=== PATIENT | female | born 1995 | race American Indian/Alaskan Native ===

== ENCOUNTER 2021-10-31 10:41 | Emergency (ER) | payer MEDICAID ==
[2021-10-31 11:14] VITALS: BP 114/86
--- NOTE | 2021-10-31 13:51 | Emergency Department Report ---
ED ENT HPI - General Chief complaint: Upper Respiratory Infection Stated complaint: CHEST PAIN Time Seen by Provider: 10/31/21 13:47 Source: patient, EMS Mode of arrival: Wheelchair Limitations: No Limitations - History of Present Illness Initial comments: 26-year-old black female with no past medical history presents to the emergency department for evaluation of 2-day history of persistent cough and now states that this morning she started to have pain in her chest only when she coughs. She states that her son was diagnosed with the flu a few days ago and then she started to have same symptoms. She denies fever, shortness of breath, nausea, vomiting, and dizziness. States that her cough has been productive for yellowish sputum. She states that she has taken ibuprofen without improvement. MD complaint: other (Cough and chest pain) -: Gradual, days(s) (2 to 3 days) Severity: moderate Severity scale (0 -10): 7 Quality: burning Consistency: intermittent Worsens with: other (Cough) Associated Symptoms: cough, pain with swallowing. denies: fever, gum swelling, toothache, sore throat, tinnitus, hearing loss, discharge from ear, rhinorrhea - Related Data Previous Rx's Medication Instructions Recorded Last Taken Type Brompheniramine/Pseudoephed/Dm 10 ml PO TID PRN #120 ml 10/31/21 Unknown Rx [Bromfed Dm Cough Syrup] methylPREDNISolone [Medrol 4MG 4 mg PO DAILY #1 pack 10/31/21 Unknown Rx DOSEPAK (21 tabs)] ED Dental HPI - General Chief complaint: Upper Respiratory Infection Stated complaint: CHEST PAIN Time Seen by Provider: 10/31/21 13:47 Source: patient, EMS Mode of arrival: Wheelchair Limitations: No Limitations - Related Data Previous Rx's Medication Instructions Recorded Last Taken Type Brompheniramine/Pseudoephed/Dm 10 ml PO TID PRN #120 ml 10/31/21 Unknown Rx [Bromfed Dm Cough Syrup] methylPREDNISolone [Medrol 4MG 4 mg PO DAILY #1 pack 10/31/21 Unknown Rx DOSEPAK (21 tabs)] ED Review of Systems ROS: Stated complaint: CHEST PAIN Other details as noted in HPI Comment: All other systems reviewed and negative Constitutional: denies: chills, fever Eyes: denies: vision change ENT: throat pain, congestion. denies: ear pain Respiratory: denies: orthopnea, shortness of breath, SOB with exertion, SOB at rest, wheezing Cardiovascular: chest pain. denies: palpitations, dyspnea on exertion, orthopnea, edema, syncope, paroxysmal nocturnal dyspnea Gastrointestinal: denies: abdominal pain, nausea, vomiting, diarrhea, hematemesis, melena, hematochezia Genitourinary: denies: urgency Musculoskeletal: denies: back pain Neurological: denies: headache, weakness, numbness, paresthesias, abnormal gait ED Past Medical Hx - Medications Home Medications: Home Medications Medication Instructions Recorded Confirmed Last Taken Type Brompheniramine/Pseudoephed/Dm 10 ml PO TID PRN #120 ml 10/31/21 Unknown Rx [Bromfed Dm Cough Syrup] methylPREDNISolone [Medrol 4MG 4 mg PO DAILY #1 pack 10/31/21 Unknown Rx DOSEPAK (21 tabs)] ED Physical Exam - General Limitations: No Limitations General appearance: alert, in no apparent distress - Head Head exam: Present: atraumatic, normocephalic - Eye Eye exam: Present: normal appearance. Absent: conjunctival injection - ENT ENT exam: Absent: normal exam (Bilateral nasal mucosal edema), normal orophraynx (Erythema to posterior oropharynx) - Neck Neck exam: Present: normal inspection. Absent: tenderness, lymphadenopathy - Respiratory Respiratory exam: Present: normal lung sounds bilaterally, chest wall tenderness. Absent: respiratory distress, wheezes, rales, rhonchi, stridor - Cardiovascular Cardiovascular Exam: Present: tachycardia, normal heart sounds - GI/Abdominal GI/Abdominal exam: Present: soft, normal bowel sounds. Absent: distended, tenderness, guarding, rigid - Extremities Exam Extremities exam: Present: normal inspection, normal capillary refill. Absent: pedal edema, joint swelling, calf tenderness - Back Exam Back exam: Present: normal inspection. Absent: CVA tenderness (R), vertebral tenderness - Neurological Exam Neurological exam: Present: alert, oriented X3 - Psychiatric Psychiatric exam: Present: normal affect, normal mood - Skin Skin exam: Present: warm, dry, intact, normal color ED Course Vital Signs 10/31/21 11:11 Temperature 98.1 F Pulse Rate 104 H Respiratory 16 Rate Blood Pressure 114/86 [Left] O2 Sat by Pulse 100 Oximetry ED Medical Decision Making - Radiology Data Radiology results: report reviewed - Medical Decision Making 26-year-old black female with no past medical history presents to the emergency department for evaluation of 2-day history of persistent cough and now states that this morning she started to have pain in her chest only when she coughs. She states that her son was diagnosed with the flu a few days ago and then she started to have same symptoms. She denies fever, shortness of breath, nausea, vomiting, and dizziness. States that her cough has been productive for yellowish sputum. She states that she has taken ibuprofen without improvement. Chest x-ray without any acute abnormalities noted. Patient with EKG obtained by EMS, and it is without any acute ischemic changes noted. Physical exam noted to have chest wall tenderness. Patient will be treated with Medrol Dosepak and Bromfed to use as needed for cough. She is advised to follow-up with her primary care provider if no improvement or worsening symptoms. She is advised to return to the emergency department as needed. She verbalizes understanding of and agreement with plan of care. Critical care attestation.: If time is entered above; I have spent that time in minutes in the direct care of this critically ill patient, excluding procedure time. ED Disposition Clinical Impression: URI with cough and congestion Disposition: HOME / SELF CARE / HOMELESS Is pt being admited?: No Does the pt Need Aspirin: No Condition: Stable Instructions: Cough, Adult, [id number], Upper Respiratory Infection, Adult, [id number] Additional Instructions: Take medications as prescribed. Follow-up with primary care provider if no improvement or worsening symptoms. Return to the emergency department as needed. Prescriptions: Brompheniramine/Pseudoephed/Dm [Bromfed Dm Cough Syrup] 10 ml PO TID PRN #120 ml PRN Reason: Cough methylPREDNISolone [Medrol 4MG DOSEPAK (21 tabs)] 4 mg PO DAILY #1 pack Referrals: JUVENCIO PAN MD [Staff Physician] - 3-5 Days Forms: Work/School Release Form(ED) Time of Disposition: 13:50
== END 2021-10-31 15:52 | disposition home or self-care (01) ==
LOC: ED 10:41
DX: J06.9 Acute upper respiratory infection, unspecified (principal)
CPT/HCPCS: 99283

== ENCOUNTER 2022-01-02 17:24 | Emergency (ER) | payer BC, MEDICAID ==
[2022-01-02 18:18] VITALS: BP 103/53
[2022-01-02] MEDS ORDERED: ACETAMINOPHEN 500 MG TAB PO ONE (21:38)
[2022-01-02 23:50] LABS: Basophils % (Auto) 0.2 % (0.0-1.8); Eosinophils % (Auto) 0.2 % (0.0-4.3); Hematocrit 27.5 % (30.3-42.9); Hemoglobin 9.4 gm/dl (10.1-14.3); Lymphocytes # (Auto) 0.2 K/mm3 (1.2-5.4); Lymphocytes % (Auto) 4.2 % (13.4-35.0); Mean Corpuscular HGB Conc 34 % (30-34); Mean Corpuscular Volume 91 fl (79-97); Monocytes # (Auto) 0.6 K/mm3 (0.0-0.8); Monocytes % (Auto) 12.5 % (0.0-7.3); Platelet Count 191 K/mm3 (140-440); Red Blood Count 3.03 M/mm3 (3.65-5.03); Red Cell Distribution Width 15.2 % (13.2-15.2)
[2022-01-03 00:04] LABS: Alanine Aminotransferase 9 units/L (7-56); Albumin 3.4 g/dL (3.9-5); Blood Urea Nitrogen 4 mg/dL (7-17); Calcium 8.4 mg/dL (8.4-10.2); Hemolysis Index 33
[2022-01-03 00:06] LABS: BUN/Creatinine Ratio 8
[2022-01-03 00:18] LABS: Bilirubin,Urine Negative (Negative); Blood,Urine Negative (Negative); Color,Urine Colorless (Yellow)
[2022-01-03 00:19] LABS: Urobilinogen,Urine 0.2 mg/dL (<2.0)
[2022-01-03 00:21] LABS: Mucus,Urine FEW /HPF
[2022-01-03 00:22] LABS: WBC,Urine < 1.0 /HPF (0.0-6.0)
--- NOTE | 2022-01-03 04:50 | Ultrasound Report ---
ULTRASOUND OBSTETRIC COMPLETE INDICATION / CLINICAL INFORMATION: pelvic pain. TECHNIQUE: Transabdominal. COMPARISON: None available. FINDINGS: NUMBER: Single PRESENTATION: transverse PLACENTA: anterior and free of the os. No significant abnormality. MATERNAL ADNEXA: No significant abnormality. AMNIOTIC FLUID VOLUME: Subjectively lia MEASUREMENTS: - Biparietal Diameter = 3.9 cm = 17 weeks 5 days - Head Circumference = 14.1 cm = 17 weeks 3 days - Abdominal Circumference = 11.4 cm = 17 weeks 1 day - Femur Length = 2.4 cm = 17 weeks 1 day - Estimated Weight (in grams, if calculated): 185 - Heart Rate (beats per minute): 178 ADDITIONAL FINDINGS: None. AVERAGE ULTRASOUND AGE (AUA) in weeks, days = 17 weeks 3 days IMPRESSION: 1. Single intrauterine with AUA of 17 weeks 3 days. 2. No significant sonographic abnormality. Signer Name: Michael Olsen MD Signed: 01/03/2022 4:46 AM Workstation Name: [id number]
--- NOTE | 2022-01-03 05:49 | Emergency Department Report ---
ED General Adult HPI - General Chief complaint: Fever Stated complaint: EARLY PREG/COVID SYM Source: patient Mode of arrival: Ambulatory Limitations: No Limitations - History of Present Illness Initial comments: Patient is a A0 26-year-old -[place]ian female who is approximately 10 weeks gestation presents to the ED with complaint of acute onset persistent low back pain, diffuse body aches and pains, diffuse low abdominal pain, nasal and sinus congestion with fever and chills for the last 2 days. Patient states that she is uncertain as to how far along she is in her . Patient denies dizziness, syncope, nausea and vomiting, dysuria, urinary frequency and urgency, vaginal bleeding or vaginal discharge, chest pain or shortness of breath or cough. MD Complaint: diffuse body aches and pains, lower back pain; lower abdominal pain; fever -: Sudden, days(s) (2) Location: back (lower), abdomen (lower) Radiation: non-radiation Severity scale (0 -10): 8 Quality: aching, sharp Consistency: constant Improves with: none Worsens with: none Associated Symptoms: denies other symptoms, fever/chills, headaches, loss of appetite, malaise. denies: chest pain, cough, diaphoresis, nausea/vomiting, rash, seizure, shortness of breath, syncope, weakness Treatments Prior to Arrival: none - Related Data Previous Rx's Medication Instructions Recorded Last Taken Type Brompheniramine/Pseudoephed/Dm 10 ml PO TID PRN #120 ml 10/31/21 Unknown Rx [Bromfed Dm Cough Syrup] methylPREDNISolone [Medrol 4MG 4 mg PO DAILY #1 pack 10/31/21 Unknown Rx DOSEPAK (21 tabs)] Acetaminophen [Tylenol] 500 mg PO Q6HR PRN #40 tablet 01/03/22 Unknown Rx Allergies Allergy/AdvReac Type Severity Reaction Status Date / Time No Known Allergies Allergy Unverified 01/02/22 18:19 ED Review of Systems ROS: Stated complaint: EARLY PREG/COVID SYM Other details as noted in HPI Constitutional: chills, malaise. denies: fever Eyes: denies: eye pain, eye discharge, vision change ENT: congestion. denies: ear pain, throat pain Respiratory: denies: cough, shortness of breath, wheezing Cardiovascular: denies: chest pain, palpitations Endocrine: no symptoms reported Gastrointestinal: abdominal pain (lower). denies: nausea, vomiting, diarrhea Genitourinary: denies: urgency, dysuria, discharge Musculoskeletal: back pain (lower), arthralgia, myalgia. denies: joint swelling Skin: denies: rash, lesions Neurological: headache. denies: weakness, paresthesias Psychiatric: denies: anxiety, depression Hematological/Lymphatic: denies: easy bleeding, easy bruising ED Past Medical Hx - Past Medical History Previous Medical History?: No - Surgical History Past Surgical History?: No - Medications Home Medications: Home Medications Medication Instructions Recorded Confirmed Last Taken Type Brompheniramine/Pseudoephed/Dm 10 ml PO TID PRN #120 ml 10/31/21 Unknown Rx [Bromfed Dm Cough Syrup] methylPREDNISolone [Medrol 4MG 4 mg PO DAILY #1 pack 10/31/21 Unknown Rx DOSEPAK (21 tabs)] Acetaminophen [Tylenol] 500 mg PO Q6HR PRN #40 tablet 01/03/22 Unknown Rx ED Physical Exam - General Limitations: No Limitations General appearance: alert, in no apparent distress - Head Head exam: Present: atraumatic, normocephalic, normal inspection - Eye Eye exam: Present: normal appearance, PERRL, EOMI Pupils: Present: normal accommodation - ENT ENT exam: Present: normal orophraynx, mucous membranes moist, TM's normal bilaterally, normal external ear exam, other (Grossly congested nasal passages) - Neck Neck exam: Present: normal inspection, full ROM. Absent: tenderness - Respiratory Respiratory exam: Present: normal lung sounds bilaterally. Absent: respiratory distress, wheezes, rales, rhonchi, chest wall tenderness, accessory muscle use, decreased breath sounds, prolonged expiratory - Cardiovascular Cardiovascular Exam: Present: normal rhythm, tachycardia, normal heart sounds. Absent: systolic murmur, diastolic murmur, rubs, gallop - GI/Abdominal GI/Abdominal exam: Present: soft, normal bowel sounds. Absent: tenderness, guarding, rigid, hyperactive bowel sounds, hypoactive bowel sounds, organomegaly - Extremities Exam Extremities exam: Present: normal inspection, full ROM, normal capillary refill. Absent: tenderness - Back Exam Back exam: Present: normal inspection, full ROM. Absent: tenderness, CVA tenderness (R), CVA tenderness (L), muscle spasm, paraspinal tenderness, vertebral tenderness, rash noted - Neurological Exam Neurological exam: Present: alert, oriented X3, CN II-XII intact, normal gait, reflexes normal - Psychiatric Psychiatric exam: Present: normal affect, normal mood - Skin Skin exam: Present: warm, dry, intact, normal color. Absent: rash ED Course Vital Signs 01/02/22 01/02/22 01/02/22 18:16 22:14 22:15 Temperature 100.1 F H 100.0 F H Pulse Rate 104 H Respiratory 18 18 Rate Blood Pressure 103/53 [Left] O2 Sat by Pulse 99 Oximetry ED Medical Decision Making - Lab Data Result diagrams: 01/02/22 23:34 01/02/22 23:34 - Radiology Data Radiology results: report reviewed, [place] [id number] Ultrasound Report Signed Patient: YASMIN SIMPSON MR#: [id number] 4 : 1995 Acct:[id number] Age/Sex: 26 / F ADM Date: 01/02/22 Loc: ED Attending Dr: Ordering Physician: CHAYO CHACON Date of Service: 01/03/22 Procedure(s): US OB >= 14 weeks Fetus Accession Number(s): [id number] cc: CHAYO CHACON ULTRASOUND OBSTETRIC COMPLETE INDICATION / CLINICAL INFORMATION: pelvic pain. TECHNIQUE: Transabdominal. COMPARISON: None available. FINDINGS: NUMBER: Single PRESENTATION: transverse PLACENTA: anterior and free of the os. No significant abnormality. MATERNAL ADNEXA: No significant abnormality. AMNIOTIC FLUID VOLUME: Subjectively lia MEASUREMENTS: - Biparietal Diameter = 3.9 cm = 17 weeks 5 days - Head Circumference = 14.1 cm = 17 weeks 3 days - Abdominal Circumference = 11.4 cm = 17 weeks 1 day - Femur Length = 2.4 cm = 17 weeks 1 day - Estimated Weight (in grams, if calculated): 185 - Heart Rate (beats per minute): 178 ADDITIONAL FINDINGS: None. AVERAGE ULTRASOUND AGE (AUA) in weeks, days = 17 weeks 3 days IMPRESSION: 1. Single intrauterine with AUA of 17 weeks 3 days. 2. No significant sonographic abnormality. Signer Name: Kelly Olsen MD Signed: 01/03/2022 4:46 AM Workstation Name: [id number] Transcribed By: TERA Dictated By: KELLY OLSEN MD Electronically Authenticated By: KELLY OLSEN MD Signed Date/Time: 01/03/22445 DD/ 3 TD/TT: Print - Medical Decision Making This is a A0 26-year-old -[place]ian female who is approximately 10 weeks gestation presents to the ED with complaint of acute onset persistent low back pain, diffuse body aches and pains, diffuse low abdominal pain, nasal and sinus congestion with fever and chills for the last 2 days. Patient states that she is uncertain as to how far along she is in her . In the ED, patient is alert and oriented x3 and is not in any distress but tachycardic and febrile in triage. Patient was treated for fever in the ED. All lab test results were reviewed and are all nonactionable except for mild hyponatremia 132 mmol/L, mild hypokalemia of 3.1 mmol/L, [place] [address]. Transvaginal ultrasound showed a single intrauterine with AUA of 17 weeks 3 days with a heart rate of 178 bpm. On reevaluation, patient's fever resolved, patient felt better and was discharged home on medications and advised to follow-up with [facility] physician in 5 to 7 days for reevaluation or return to the ED immediately if symptoms get worse. - Differential Diagnosis UTI; muscle spasm; viral syndrome; URI; Critical care attestation.: If time is entered above; I have spent that time in minutes in the direct care of this critically ill patient, excluding procedure time. ED Disposition Clinical Impression: Fever and chills, Acute viral syndrome, Abdominal pain during in second trimester Disposition: 01 HOME / SELF CARE / HOMELESS Is pt being admited?: No Does the pt Need Aspirin: No Condition: Stable Instructions: Viral Respiratory Infection, Yjkv-Pc-Iyne, Abdominal Pain During , Hmdz-ac-Lrai, Fever, Adult, [id number], Viral Illness, Adult Additional Instructions: All lab test results were reviewed and are all nonactionable. Transvaginal ultrasound showed s single intrauterine with AUA of 17 weeks 3 days with a heart rate of 178 bpm. All lab test results were reviewed and are all nonactionable. Your symptoms are likely viral in etiology. Therefore take medications with food, drink plenty of fluids, follow-up with your [facility] physician in 7 to 10 days for reevaluation. Return to the ED immediately if symptoms get worse. Prescriptions: Acetaminophen [Tylenol] 500 mg PO Q6HR PRN #40 tablet PRN Reason: Pain , Severe (7-10) Referrals: HERMELINDA MONREAL MD [Staff Physician] - 7-10 days Time of Disposition: 05:54 Print Language: IRISH
== END 2022-01-03 06:53 | disposition home or self-care (01) ==
LOC: ED 17:24
DX: O26.892 Other specified pregnancy related conditions, second trimester (principal); R10.9 Unspecified abdominal pain; O98.511 Other viral diseases complicating pregnancy, first trimester; Z3A.10 10 weeks gestation of pregnancy
CPT/HCPCS: 36415; 76805; 80053; 81001; 84702; 85025; 99284

== ENCOUNTER 2022-01-26 07:22 | Emergency (ER) | payer BC, MEDICAID ==
[2022-01-26 07:38] VITALS: BP 114/64
--- NOTE | 2022-01-26 08:43 | Ultrasound Report ---
ULTRASOUND OBSTETRIC INDICATION / CLINICAL INFORMATION: Vaginal bleeding. - Clinical Gestational Age (GA) in weeks, days: Unknown. TECHNIQUE: Transabdominal. COMPARISON: Ultrasound dated 01/03/22 FINDINGS: Single intrauterine . Biparietal Diameter = 4.8 cm = 20, 4 weeks, days Head Circumference = 18.1 cm = 20, 4 weeks, days Abdominal Circumference = 15.0 cm = 20, 2 weeks, days Femur Length = 3.4 cm = 20, 5 weeks, days Average Ultrasound Age (AUA) = 20, 4 weeks, days Heart Rate: 160 beats per minute. Estimated Weight in grams (if calculated): 357 g Estimated Weight Growth Percentile (if calculated): Not calculated Position: cephalic. Cervix: closed. Length in cm (if measured): 2.4 cm Placenta: anterior and free of the os. Anterior margin of the placenta is 0.7 cm from the internal ce rvical os. Amniotic Fluid Volume: normal Amniotic Fluid Index (FELTON) in cm (if calculated): Not calculated.. Maternal Adnexa: No significant abnormality. IMPRESSION: 1. Single, living intrauterine with estimated sonographic age of 20, 4 weeks, days. 2. No significant sonographic abnormality. Signer Name: Francy Olivas MD Signed: 01/26/2022 8:39 AM Workstation Name: [id number]
[2022-01-26 09:24] LABS: Blood Urea Nitrogen 7 mg/dL (7-17); Calcium 8.3 mg/dL (8.4-10.2); Hemolysis Index 10
[2022-01-26 09:43] LABS: BUN/Creatinine Ratio 12
[2022-01-26 09:57] LABS: Basophils % (Auto) 0.6 % (0.0-1.8); Eosinophils # (Auto) 0.1 K/mm3 (0.0-0.4); Eosinophils % (Auto) 2.1 % (0.0-4.3); Hematocrit 27.7 % (30.3-42.9); Hemoglobin 9.2 gm/dl (10.1-14.3); Lymphocytes # (Auto) 1.3 K/mm3 (1.2-5.4); Lymphocytes % (Auto) 27.3 % (13.4-35.0); Mean Corpuscular HGB Conc 33 % (30-34); Mean Corpuscular Volume 94 fl (79-97); Monocytes # (Auto) 0.5 K/mm3 (0.0-0.8); Monocytes % (Auto) 11.3 % (0.0-7.3); Platelet Count 216 K/mm3 (140-440); Red Blood Count 2.94 M/mm3 (3.65-5.03); Red Cell Distribution Width 14.6 % (13.2-15.2)
--- NOTE | 2022-01-26 11:06 | Emergency Department Report ---
ED Female HPI - General Chief complaint: Urogenital-Female Stated complaint: PREG UNK WKS/SPOTTING/CRAMPING Time Seen by Provider: 01/26/22 09:23 Source: patient Mode of arrival: Ambulatory Limitations: No Limitations - History of Present Illness Initial comments: 26 YO COMES TO ER WITH VAG BLEED IN PREG. Complaint: vaginal bleeding -: Gradual Quality: cramping Consistency: intermittent Improves with: none Are you Now?: Yes Associated Symptoms: denies other symptoms, vaginal bleeding. denies: vaginal discharge, abdominal pain, nausea/vomiting, fever/chills, headaches, loss of appetite, dysuria, hematuria, rash, seizure, shortness of breath, syncope, wea kness - Related Data Sexually active: Yes Previous Rx's Medication Instructions Recorded Last Taken Type Brompheniramine/Pseudoephed/Dm 10 ml PO TID PRN #120 ml 10/31/21 Unknown Rx [Bromfed Dm Cough Syrup] methylPREDNISolone [Medrol 4MG 4 mg PO DAILY #1 pack 10/31/21 Unknown Rx DOSEPAK (21 tabs)] Acetaminophen [Tylenol] 500 mg PO Q6HR PRN #40 tablet 01/03/22 Unknown Rx Allergies Allergy/AdvReac Type Severity Reaction Status Date / Time No Known Allergies Allergy Verified 01/26/22 07:38 ED Review of Systems ROS: Stated complaint: PREG UNK WKS/SPOTTING/CRAMPING Other details as noted in HPI Comment: All other systems reviewed and negative ED Past Medical Hx - Past Medical History Previous Medical History?: No - Surgical History Past Surgical History?: No - Family History Family history: no significant - Social History Smoking Status: Never Smoker Substance Use Type: Alcohol - Medications Home Medications: Home Medications Medication Instructions Recorded Confirmed Last Taken Type Brompheniramine/Pseudoephed/Dm 10 ml PO TID PRN #120 ml 10/31/21 Unknown Rx [Bromfed Dm Cough Syrup] methylPREDNISolone [Medrol 4MG 4 mg PO DAILY #1 pack 10/31/21 Unknown Rx DOSEPAK (21 tabs)] Acetaminophen [Tylenol] 500 mg PO Q6HR PRN #40 tablet 01/03/22 Unknown Rx ED Physical Exam - General Limitations: No Limitations General appearance: alert, in no apparent distress - Head Head exam: Present: atraumatic, normocephalic - Eye Eye exam: Present: normal appearance - ENT ENT exam: Present: mucous membranes moist - Neck Neck exam: Present: normal inspection - Respiratory Respiratory exam: Present: normal lung sounds bilaterally. Absent: respiratory distress - Cardiovascular Cardiovascular Exam: Present: regular rate, normal rhythm. Absent: systolic murmur, diastolic murmur, rubs, gallop - GI/Abdominal GI/Abdominal exam: Present: soft, normal bowel sounds - Extremities Exam Extremities exam: Present: normal inspection - Back Exam Back exam: Present: normal inspection - Neurological Exam Neurological exam: Present: alert, oriented X3 - Psychiatric Psychiatric exam: Present: normal affect, normal mood - Skin Skin exam: Present: warm, dry, intact, normal color. Absent: rash ED Course Vital Signs 01/26/22 07:32 Temperature 97.6 F Pulse Rate 97 H Respiratory 16 Rate Blood Pressure 114/64 [Right] O2 Sat by Pulse 99 Oximetry ED Medical Decision Making - Lab Data Result diagrams: 01/26/22 07:54 01/26/22 07:54 - Radiology Data Radiology results: report reviewed, image reviewed SEE REPORT - Medical Decision Making Labs 01/26/22 01/26/22 01/26/22 07:54 07:54 07:54 WBC 4.6 RBC 2.94 L Hgb 9.2 L Hct 27.7 L MCV 94 MCH 31 MCHC 33 RDW 14.6 Plt Count 216 Lymph % (Auto) 27.3 [place] % (Auto) 11.3 H Eos % (Auto) 2.1 Baso % (Auto) 0.6 Lymph # (Auto) 1.3 [place] # (Auto) 0.5 Eos # (Auto) 0.1 Baso # (Auto) 0.0 Seg Neutrophils % 58.7 Seg Neutrophils # 2.7 Sodium 136 L Potassium 3.6 Chloride 106.6 Carbon Dioxide 21 L Anion Gap 12 BUN 7 Creatinine 0.6 Estimated GFR > 60 BUN/Creatinine Ratio 12 Glucose 68 Calcium 8.3 L HCG, Quant 80764 H Blood Type Ord Rhogam Gestat Weeks 01/26/22 09:40 WBC RBC Hgb Hct MCV MCH MCHC RDW Plt Count Lymph % (Auto) [place] % (Auto) Eos % (Auto) Baso % (Auto) Lymph # (Auto) [place] # (Auto) Eos # (Auto) Baso # (Auto) Seg Neutrophils % Seg Neutrophils # Sodium Potassium Chloride Carbon Dioxide Anion Gap BUN Creatinine Estimated GFR BUN/Creatinine Ratio Glucose Calcium HCG, Quant Blood Type O POSITIVE Ord Rhogam Gestat Weeks Rh pos Vital Signs 01/26/22 07:32 Temperature 97.6 F Pulse Rate 97 H Respiratory 16 Rate Blood Pressure 114/64 [Right] O2 Sat by Pulse 99 Oximetry LABS NOTED RH POS US NOTED RAZIA DISCUSSED THIS WITH PT PT AMBULATORY TAKING PO NAD IN ER DC HOME WITH DC PLAN OF CARE INCLUDING DIET, MEDS, ACTIVITY AND FOLLOW UP. SHE VERBALIZES UNDERSTANDING OF PLAN OF CARE. - Differential Diagnosis RO AB/ECTOPIC Critical care attestation.: If time is entered above; I have spent that time in minutes in the direct care of this critically ill patient, excluding procedure time. ED Disposition Clinical Impression: Disposition: 01 HOME / SELF CARE / HOMELESS Is pt being admited?: No Does the pt Need Aspirin: No Condition: Stable Instructions: First Trimester of , Degy-ik-Ikgs Additional Instructions: TYLENOL FOR PAIN FOLLOW UP WITH OBGYN IN 48 HOURS FOR RECHECK REFERRAL BELOW Referrals: PRIMARY CAREMD [Primary Care Provider] - 3-5 Days WINSTON DENNEY MD [Staff Physician] - 3-5 Days Forms: Work/School Release Form(ED) Time of Disposition: 16:28
== END 2022-01-26 15:20 | disposition home or self-care (01) ==
LOC: ED 07:22
DX: O20.8 Other hemorrhage in early pregnancy (principal); Z3A.24 24 weeks gestation of pregnancy; Z72.89 Other problems related to lifestyle; Z79.899 Other long term (current) drug therapy
CPT/HCPCS: 36415; 76805; 80048; 84702; 85025; 86900; 86901; 99284